=== PATIENT | female | born 1960 | race Caucasian/White ===

== ENCOUNTER → 2016-12-04 13:07 | Outpatient (CLI) | payer MEDICARE ==
[2016-03-09 09:31] VITALS: BMI 36.2
[~2016-12-04 13:07] MED LIST: ASPIRIN EC81 M1 PO; BACTROBAN 22 GM22 GM TP; CATAPRES0.1 MG PO; COUMADIN5 MG PO; CYMBALTA60 MG PO; GLUCOPHAGE1000 MG PO; HUMALOG 30100 UNITS/ SC; HUMALOG MI100 UNITS/ SQ; HYDROCODONE-APA1 TAB PO; IBUPROFEN200 MG PO; LANTUS INSULIN10 ML SQ; LYRICA50 MG PO; METFORMIN HCL500 M1 PO; METOPROLOL TAR100 M1 PO; METOPROLOL TAR100 MG PO; NEURONTIN 300300 MG; NEURONTIN 300300 MG PO; NITROQUICK0.4 MG; NORVASC10 MG PO; NORVASC5 MG PO; PAXIL30 MG PO; PEPCID40 MG PO; PERCOCET 10/3251 TA1; PLAVIX75 MG PO; PRILOSEC20 MG PO; PRINIVIL20 MG PO; TOPROL XL100 MG PO; TOUJEO SOL300 UNIT/1 SC; TYLENOL ARTHRI650 MG PO; TYLENOL PM1 TAB PO
[2016-12-04 14:01] LABS: CREATININE - SERUM 1.4 mg/dL (0.6-1.3)
== END | disposition home or self-care (01) ==
LOC: D.LAB 13:00 → D.MRI 13:30
PROVIDERS: Internal Medicine Interventional Cardiology
DX: R20.0 Anesthesia of skin (principal)

== ENCOUNTER 2017-05-18 07:37 | Outpatient (CLI) | payer MEDICARE | END 2017-05-18 13:46 | disposition home or self-care (01) | LOC: D.CATH 07:37 | DX: I20.9 Angina pectoris, unspecified (principal); R06.00 Dyspnea, unspecified; R94.30 Abnormal result of cardiovascular function study, unspecified; I10 Essential (primary) hypertension; Z01.812 Encounter for preprocedural laboratory examination ==

== ENCOUNTER → 2017-10-02 12:32 | Outpatient (CLI) | payer MEDICARE ==
[2017-05-18 08:10] VITALS: BMI 36.2
[~2017-10-02 12:32] MED LIST changes: +BAYER CHEWABLE81 MG PO
== END | disposition home or self-care (01) ==
LOC: D.MRI 12:32
DX: M75.121 Complete rotator cuff tear or rupture of right shoulder, not specified as traumatic (principal)

== ENCOUNTER → 2018-01-21 13:24 | Outpatient (CLI) | payer MEDICARE ==
[2017-05-18 08:10] VITALS: BMI 36.2
== END | disposition home or self-care (01) ==
LOC: D.MRI 13:24
DX: M54.12 Radiculopathy, cervical region (principal)

== ENCOUNTER 2018-03-12 08:20 | Day surgery (SDC) | payer MEDICARE ==
[2018-03-11 16:13] LABS: CALCIUM 8.7 mg/dL (8.5-10.1); CARBON DIOXIDE 28.9 mmol/L (21.0-32.0); CREATININE - SERUM 1.2 mg/dL (0.6-1.3); POTASSIUM - SERUM 4.9 mmol/L (3.5-5.1)
[2018-03-11 16:14] LABS: HEMATOCRIT 38.9 % (36.0-48.0); HEMOGLOBIN 13.3 g/dL (12-16); MCH 30.2 pg (26.0-34.0); MCHC 34.2 g/dL (31.0-37.0); MCV 88.2 fL (80.0-100.0); MEAN PLATELET VOLUME 11.1 fL (7.4-10.4); RBC 4.41 10x6/uL (4.00-5.40); RDW 12.9 % (11.5-14.5); WBC 5.5 10x3/uL (4.8-10.8)
[~2018-03-12] VITALS: Ht 152.4 cm; Wt 81.6 kg
--- NOTE | ~2018-03-12 | OP ---
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 PROCEDURE: Anterior cervical discectomy and fusion with removal of osteophytes of C5-C6, anterior cervical plate and screws and interbody cage with bone stem cell allograft. SURGEON: Abdoul Beckett MD DESCRIPTION OF TECHNIQUE: After induction of general endotracheal anesthesia, the patient was positioned supine on the operating table with interscapular roll in place. The neck was prepped and draped in usual sterile fashion. Fluoroscopic x-ray and freer localized the C5-C6 interspace. A 1:100,000 epinephrine with 1% lidocaine was infiltrated in the subcutaneous tissues. A transverse skin incision was carried out from the midline to sternocleidomastoid muscle. The platysma was divided with Bovie cautery. Using blunt and sharp dissection with Metzenbaum scissors, I proceeded in avascular plane medial to the carotid sheath. The longus colli muscles were elevated from bodies of C5 and C6. A self-retaining retractor was placed deep to the muscles. Gardiner distracting pins were placed in the bodies of C5 and C6. Osteophytes were removed anteriorly with Adson rongeurs at C5 and C6. Disc space was incised with a #11 blade, curettes and with pituitary rongeurs and the bony endplates were prepared. A microscope and Midas Silvino drill were used to remove the osteophytes posteriorly. The posterior longitudinal ligament was removed with Cloward rongeurs. Dura was decompressed well. Foraminotomy was carried out on both sides. A 7 mm PEEK interbody cage was placed in the disc space with 6 degrees lordosis. Prior to this, it was filled with bone stem cell allograft. Next, a separate anterior cervical plate and screw was used to span the C5-C6 interspace. A 16 mm screw was placed in the holes and plate. Locking cams were tightened down over screw heads. Good position of the hardware was confirmed with fluoroscopic x-ray. Meticulous hemostasis was maintained throughout the wound. The wound was irrigated with copious amounts of Ancef irrigant solution. The platysma was reapproximated with interrupted 3-0 Vicryl suture. The subdermal layer was closed with interrupted 3-0 Vicryl suture. The Prineo was used to reapproximate the skin edges. Sterile dressing was applied to the wound. The patient was awakened in good condition and taken to recovery. All counts were reported as correct. Estimated blood loss was minimal. TRANSINT:[id number] Voice Confirmation ID: [id number] DOCUMENT ID: [id number] ABDOUL BECKETT MD at 1710 CC: [id number] DICTATION DATE: 04/23/18 1015 ROOF TECHNICIAN: 04/23/18 1057 [facility] 03/13/18 [facility] [address] [place] [address]
[~2018-03-12 08:20] MED LIST changes: +COZAAR50 MG PO; +GLUCOPHAGE XR750 MG PO; +TOUJEO SOL300 UNIT/1 SQ
[2018-03-12 09:18] VITALS: BP 131/69; BMI 35.2
[2018-03-12 16:40] VITALS: BP 129/58
[2018-03-12 17:17] VITALS: BP 129/58; BMI 35.2
[2018-03-12 21:18] VITALS: BP 112/73
[2018-03-13 04:00] VITALS: BP 135/71
[2018-03-13 08:28] VITALS: BP 125/61
[2018-03-13 12:08] VITALS: BP 143/62
[2018-03-13 14:20] VITALS: Ht 152.4 cm; Wt 81.6 kg
[2018-03-13 16:09] VITALS: BP 140/66
[2018-03-13 20:00] VITALS: BP 188/69
== END 2018-03-13 22:09 | disposition home or self-care (01) ==
LOC: D.OPS 08:20 → D.MS 08:20 → D.OPS 10:00 → D.PAN 10:30 → D.OPS 10:30 → D.MS 16:12 → D.OPS 03-13 22:09
PROVIDERS: Anesthesiology
DX: M50.122 Cervical disc disorder at C5-C6 level with radiculopathy (principal); M25.78 Osteophyte, vertebrae; Z01.812 Encounter for preprocedural laboratory examination

== ENCOUNTER → 2018-12-30 08:04 | Outpatient (CLI) | payer MEDICARE ==
[2018-03-13 14:20] VITALS: BMI 35.1
--- NOTE | 2019-01-01 10:39 | ST ---
PATIENT:KELY CAMP MEDICAL RECORD: [id number] SEX: F LOCATION:[facility] ORDER #: ADMISSION DATE: 12/30/18 AGE OF PATIENT: 59 REFERRING PHYSICIAN: INTERPRETING PHYSICIAN: JULIAN LOCKHART MD DATE OF SERVICE: 12/30/2018 Nuclear Stress Test INDICATION: Angina and coronary artery disease, shortness of breath, hypertension. She was exercised on standard Lexiscan protocol with 29 mCi of sestamibi injected at peak stress, 10 mCi were used previously for rest images. FINDINGS: Gated SPECT reveals preserved ejection fraction at 63% with good wall motioning and thickening and brightening throughout all segments. SPECT imaging Cardiolite was used as myocardial perfusion agent. There is a large area of severe reversible ischemia anteriorly and laterally. This includes the basal, mid apical anterior segments as well as the apical lateral, mid lateral, basal lateral segments. The degree of reversibility is moderate to severe. The amount of myocardium involved is large. OVERALL IMPRESSION: 1. This is markedly abnormal nuclear stress test, large area of reversible ischemia anterolaterally. 2. Gated SPECT reveals preserved ejection fraction greater than 60% in this patient with ongoing symptomatology, the current scan does suggest the presence of hemodynamically significant coronary artery disease. We will proceed with coronary angiography as followup study. TRANSINT:[id number] Voice Confirmation ID: [id number] DOCUMENT ID: [id number] JULIAN LOCKHART MD at 1039 CC: [id number] DICTATION DATE: 12/30/18 1553 UNIT SECRETARY: 12/31/18 0557 DEP CLI 12/30/18 [place] [id number] [place] [id number]
== END | disposition home or self-care (01) ==
LOC: D.HCCARDIO 08:04
PROVIDERS: ATTEND Internal Medicine Interventional Cardiology
DX: I25.119 Atherosclerotic heart disease of native coronary artery with unspecified angina pectoris (principal)

== ENCOUNTER → 2019-02-05 13:38 | Outpatient (CLI) | payer MEDICARE ==
[2019-01-07 08:10] VITALS: BMI 37.1
--- NOTE | ~2019-02-05 | EC ---
PATIENT:KELY CAMP DATE OF SERVICE: 02/05/19 SEX: F MEDICAL RECORD: [id number] DATE OF : 58 [facility] AGE OF PATIENT: 59 ADMISSION DATE: 02/05/19 REFERRING PHYSICIAN: INTERPRETING PHYSICIAN: JULIAN CASILLAS MD ECHOCARDIOGRAM REPORT ECHO CHARGES 4 ECHO COMPLETE Date: 02/05/19 CLINICAL DIAGNOSIS: DYSPNEA HX OF CAD,RECENT STENT ECHOCARDIOGRAPHIC MEASUREMENTS (adult normal given) AC root (d.<3.7cm) 3.2 cm LV Septum d (<1.2 cm> 1.8 cm Valve Excursion 1.6 cm LV Septum (systole) 2.2 cm Left Atria (s.<4.0cm> 3.8 cm LVPW d(<1.2cm) 1.6 cm RV (d.<2.3cm) 2.9 cm LVPW (sytole) 2.0 cm LV diastole(<5.6CM) 3.6 cm MV E-F(>70mm/sec) cm LV systole 2.2 cm LVOT Diameter 1.6 cm MV exc.(>10mm) 1.0 cm Est.ejection fraction (50-75%) % DOPPLER: LVIT cm/sec A 94.0 cm/sec E 66.0 cm/sec LA cm/sec RVSP 28 mmHg LVOT 132 cm/sec AOP1/2T m/s Asc. Ao 169 cm/sec RVOT 97 cm/sec RA cm/sec PA 116 cm/sec AV Gradient Peak 11.37mmHg AV Mean 6.26 mmHg AV Area 1.6 cm MV Gradient Peak 5.85 mmHg MV Mean 1.97 mmHg MV Area cm COMMENTS: Trip Motor Operator: Kika REDDING Child Guidance Counselor: 1 Dr. Casillas TAPE# PACS Pericardial Effusion N DATE OF SERVICE: 02/05/2019 FINDINGS: 1. Left ventricular chamber size is within normal limits. Left ventricular systolic function is normal. Overall ejection fraction estimated at 60%. 2. Left atrium, right atrium, and right ventricular chamber sizes are within normal limit. 3. Valvular structures have normal structure and motion. 4. Doppler interrogation only reveals trace tricuspid regurgitation. No other valvular insufficiency or stenosis. Pulmonary systolic pressure is normal, ECHOCARDIOGRAM REPORT [id number] KELY CAMP estimated at 28 mmHg. 5. No evidence of pericardial effusion or left ventricular thrombus. TRANSINT:[id number] Voice Confirmation ID: [id number] DOCUMENT ID: [id number] JULIAN CASILLAS MD CC: [id number] DICTATION DATE: 02/05/19 172 RN TELE: 02/05/19 2224 [facility] [address] [place] [id number]
== END | disposition home or self-care (01) ==
LOC: D.HCCARDIO 13:38
PROVIDERS: ATTEND Internal Medicine Interventional Cardiology
DX: R06.00 Dyspnea, unspecified (principal)

== ENCOUNTER → 2020-04-29 10:32 | Outpatient (CLI) | payer MEDICARE ==
[2019-01-07 08:10] VITALS: BMI 37.1
== END | disposition home or self-care (01) ==
LOC: D.HCCECHO 10:30
PROVIDERS: ATTEND Internal Medicine Cardiovascular Disease
DX: I25.10 Atherosclerotic heart disease of native coronary artery without angina pectoris (principal)

== ENCOUNTER → 2021-01-10 08:05 | Outpatient (CLI) | payer MEDICARE ==
[2019-01-07 08:10] VITALS: BMI 37.1
== END | disposition home or self-care (01) ==
LOC: D.HCCARDIO 08:05
PROVIDERS: ATTEND Internal Medicine Cardiovascular Disease
DX: I10 Essential (primary) hypertension (principal)

== ENCOUNTER → 2021-01-17 10:09 | Outpatient (CLI) | payer MEDICARE ==
[2019-01-07 08:10] VITALS: BMI 37.1
== END | disposition home or self-care (01) ==
LOC: D.US 10:00
PROVIDERS: ATTEND Internal Medicine Interventional Cardiology
DX: I65.29 Occlusion and stenosis of unspecified carotid artery (principal)

== ENCOUNTER 2021-01-20 10:57 | Day surgery (SDC) | payer MEDICARE ==
[~2021-01-20] VITALS: Ht 152.4 cm; Wt 87.2 kg
[~2021-01-20 10:57] MED LIST changes: +METOPROLOL TART50 MG PO
[2021-01-20] MEDS ORDERED: NORVASC10 MG PO (11:25)
[2021-01-20] MEDS ORDERED: METFORMIN HCL500 M1 PO (11:28)
[2021-01-20] MEDS ORDERED: GLUCOPHAGE1000 MG PO (11:29)
[2021-01-20] MEDS ORDERED: OZEMPIC1 MG/0.75 SC (11:30)
[2021-01-20] MEDS ORDERED: VALIUM5 MG PO ×2 (11:30→11:31)
[2021-01-20] MEDS ORDERED: DICLOFENAC SODI50 MG PO (11:32)
[2021-01-20] MEDS ORDERED: OMEPRAZOLE20 M1 PO (11:33)
[2021-01-20] MEDS ORDERED: MAGNESIUM OXID250 MG PO (11:33)
[2021-01-20] MEDS ORDERED: MAG-OX 400 MG400 MG PO (11:35)
[2021-01-20 11:50] VITALS: BP 138/68; Ht 152.4 cm; Wt 87.2 kg
[2021-01-20 11:55] LABS: BASOPHILS 0.5 % (0-2); HEMATOCRIT 38.6 % (36.0-48.0); HEMOGLOBIN 12.9 g/dL (12-16); LYMPHOCYTES 22.3 % (15-50); MCHC 33.5 g/dL (31.0-37.0); MCV 89.6 fL (80.0-100.0); MEAN PLATELET VOLUME 8.7 fL (7.4-10.4); MONOCYTES 8.2 % (2-11); PLATELET COUNT 263 10x3/uL (130-400); RBC 4.31 10x6/uL (4.00-5.40); RDW 13.3 % (11.5-14.5); WBC 7.3 10x3/uL (4.8-10.8)
[2021-01-20 12:07] LABS: CALCIUM 9.4 mg/dL (8.5-10.1); CARBON DIOXIDE 26.1 mmol/L (21.0-32.0); CHOL - HDL RATIO 3.8 ratio (2.3-4.1); CREATININE - SERUM 1.1 mg/dL (0.6-1.3); LDL-HDL RATIO 2.3 ratio (1.5-3.5); POTASSIUM - SERUM 4.1 mmol/L (3.5-5.1)
--- NOTE | 2021-01-20 14:33 | NUR ---
PT REC'D TO CATH RECOVERY ROOM 7 VIA STRETCHER. MONITORS ESTAB. MOTHER AT , UPDATED BY DR STAPLES. SEE CHANGE MANAGEMENT LEAD FLOWSHEETS. ALARMS ON AND C/L IN REACH.
--- NOTE | 2021-01-20 14:50 | NUR ---
R WRIST Z BAND SITE C/D/I, NO S/S BLEEDING OR SWELLING. R ARM/HAND WARM WITH PALP PULSES AND BRISK CAP REFILL. SANDWICH TRAY AND DIET COLA PROVIDED. VSS. ALARMS ON AND C/L IN REACH.
--- NOTE | 2021-01-20 15:20 | NUR ---
R WRIST Z BAND SITE C/D/I, NO S/S BLEEDING OR HEMATOMA. PULSES PALP. PT SITTING UP IN BED, VSS. DENIES PAIN OR NEEDS. ALARMS ON AND C/L IN REACH.
--- NOTE | 2021-01-20 15:35 | NUR ---
PT VISITING WITH MOTHER, R WRIST Z BAND SITE C/D/I, R ARM/HAND WARM WITH PALP PULSES AND BRISK CAP REFILL. VSS. PT DENIES PAIN OR NEEDS. ALARMS ON AND C/L IN REACH.
[2021-01-20] MEDS ORDERED: PLAVIX75 MG PO (16:05)
--- NOTE | 2021-01-20 16:05 | NUR ---
R WRIST Z BAND SITE C/D/I, NO S/S BLEEDING OR SWELLING, PULSES PALP. VSS. PT DENIES PAIN OR SWELLING. VSS. ALARMS ON AND C/L IN REACH.
[2021-01-20] MEDS ORDERED: PRAVASTATIN SOD10 MG PO (16:08)
--- NOTE | 2021-01-20 16:22 | NUR ---
NEW PRESCRIPTIONS CALLED IN TO [facility] PER PT REQUEST.
--- NOTE | 2021-01-20 16:40 | NUR ---
PT SITTING UP IN BED, VISITING, VSS. R WRIST SITE C/D/I, NO S/S BLEEDING OR HEMATOMA. R ARM/HAND WARM WITH PALP PULSES AND BRISK CAP REFILL. PT ASSISTED UP TO BSC, VOIDED 400CC CLEAR, YELLOW URINE, PERICARE PER PT. BACK TO BED, MOTHER AT BS. ALARMS ON AND C/L IN REACH.
--- NOTE | 2021-01-20 17:15 | NUR ---
5CC AIR REMOVED FROM Z BAND, NO S/S BLEEDING. PULSES PALP. PT VERBALIZES S/S TO REPORT TO NURSE. ALARMS ON AND C/L IN REACH.
--- NOTE | 2021-01-20 17:36 | NUR ---
7CC TOTAL AIR REMOVED FROM Z BAND, NO S/S BLEEDING OR HEMATOMA. PULSES PALP. ALARMS ON AND C/L IN REACH.
--- NOTE | 2021-01-20 17:51 | NUR ---
ALL AIR REMOVED FROM Z BAND, NO S/S BLEEDING OR HEMATOMA. PULSES PALP. BRISK CAP REFILL. VSS. PT DENIES PAIN OR NEEDS. ALARMS ON AND C/L IN REACH.
--- NOTE | 2021-01-20 18:06 | NUR ---
R WRIST SITE C/D/I. PIV D/C'D INTACT, DSG APPLIED. PT ALLOWED UP TO GET DRESSED INDEPENDENTLY.
--- NOTE | 2021-01-20 18:16 | NUR ---
ZBAND OFF, DSG AND ARM BOARD APPLIED, NO S/S BLEEDING OR SWELLING. ALL DISCHARGE INSTRUCTIONS, INCULDING RESTRICTIONS, MEDS AND F/U APPT (INCLUDING PLAN FOR CARDIAC REHAB) REVIEWED WITH PT AND HER DAUGHTER - BOTH VERBALIZE UNDERSTANDING.
--- NOTE | 2021-01-20 18:20 | NUR ---
PT D/C'D VIA W/C TO PRIVATE VEHICLE WITH ALL PAPERWORK AND BELONGINGS.
--- NOTE | 2021-01-21 08:32 | OP ---
PATIENT NAME: KELY CAMP MEDICAL RECORD: [id number] :58 LOCATION:[facility] ADMISSION DATE: SURGEON: JACKY STAPLES MD DATE OF OPERATION: 01/20/2021 PROCEDURE: Left heart cath, selective coronary angiography, IFR to the ramus intermedius, a stent to the ramus intermediate branch, right radial approach. CATHETERS: Radial sheath, [place] catheter, XB catheter, IFR wire. The procedure was well tolerated. The patient was returned to the garza. Sheath removed. ExoSeal device placed. FINDINGS: Left ventriculography in 30-degree FONSECA view, normal wall motion and normal systolic function. CORONARY ANATOMY: LEFT MAIN: Left main is free of disease. LAD: Previously placed stents are widely patent without evidence of restenosis. No evidence of progression of [place] disease. Actually there is a large ramus intermediate branch, has about 80% stenosis confirmed by IFR wire. CIRCUMFLEX: Small vessel, free of disease. RIGHT CORONARY ARTERY: Free of disease. DESCRIPTION OF PROCEDURE: After IFR confirmed 80% stenosis in the ramus, a 3.0 x 15 mm Nichols drug-eluting stent was placed into the ramus intermediate branch, inflated up to 14 atmospheres for 45 seconds. Final angiography shows excellent resolution of 80% stenosis, no significant residual. AUDREY flow was 3 throughout the procedure. Heparin and Integrilin were used during the case. Plavix was loaded in the lab. Sheath was closed with TR band. TRANSINT:[id number] Voice Confirmation ID: [id number] DOCUMENT ID: [id number] JACKY STAPLES MD at 0832 CC: [id number] DICTATION DATE: 01/20/21 1415 B[employer] SHOP FLOORPERSON: 01/20/21 1656 [facility] 01/20/21 [place] [phone]
== END 2021-01-20 18:20 | disposition home or self-care (01) ==
LOC: D.CATH 10:57
PROVIDERS: ATTEND Internal Medicine Interventional Cardiology
DX: I25.119 Atherosclerotic heart disease of native coronary artery with unspecified angina pectoris (principal); I10 Essential (primary) hypertension; E78.5 Hyperlipidemia, unspecified; R09.89 Other specified symptoms and signs involving the circulatory and respiratory systems; I73.9 Peripheral vascular disease, unspecified; R94.39 Abnormal result of other cardiovascular function study
CPT/HCPCS: 93458; 93571; C9600